=== PATIENT | female | born 1985 | race Caucasian/White ===

== ENCOUNTER → 2024-09-17 09:18 | Outpatient (REF) | payer OTHER, SELFPAY | LOC: PNTC 09:18 | PROVIDERS: ATTENDING PHYSICIAN Nurse Practitioner Family | DX: O36.80X0 Pregnancy with inconclusive fetal viability, not applicable or unspecified (principal) | CPT/HCPCS: 76801 ==

== ENCOUNTER → 2024-10-08 16:35 | Outpatient (REF) | payer OTHER, SELFPAY | LOC: PNTC 16:35 | PROVIDERS: ATTENDING PHYSICIAN Obstetrics & Gynecology | DX: O09.529 Supervision of elderly multigravida, unspecified trimester (principal) | CPT/HCPCS: 76801; 76813 ==

== ENCOUNTER → 2024-11-26 15:51 | Outpatient (REF) | payer OTHER, SELFPAY | LOC: PNTC 15:51 | PROVIDERS: ATTENDING PHYSICIAN Obstetrics & Gynecology | DX: O09.529 Supervision of elderly multigravida, unspecified trimester (principal) | CPT/HCPCS: 76811; 76817 ==

== ENCOUNTER → 2025-01-15 16:12 | Outpatient (REF) | payer OTHER, SELFPAY | LOC: PNTC 16:12 | PROVIDERS: ATTENDING PHYSICIAN Obstetrics & Gynecology | DX: O09.522 Supervision of elderly multigravida, second trimester (principal); O46.92 Antepartum hemorrhage, unspecified, second trimester | CPT/HCPCS: 76816 ==

== ENCOUNTER → 2025-02-21 16:08 | Outpatient (REF) | payer OTHER, SELFPAY | LOC: PNTC 16:08 | PROVIDERS: ATTENDING PHYSICIAN Obstetrics & Gynecology | DX: O09.523 Supervision of elderly multigravida, third trimester (principal); O46.93 Antepartum hemorrhage, unspecified, third trimester | CPT/HCPCS: 76816 ==

== ENCOUNTER 2025-03-21 16:56 | Observation (INO) | payer OTHER, SELFPAY ==
[2025-03-21 17:05] VITALS: BP 107/76; BMI 25.8
== END 2025-03-21 19:25 | disposition home or self-care (01) ==
LOC: LDRP 16:56
PROVIDERS: ADMITTING PHYSICIAN Obstetrics & Gynecology
DX: O47.1 False labor at or after 37 completed weeks of gestation (principal); Z3A.37 37 weeks gestation of pregnancy; Z91.030 Bee allergy status
CPT/HCPCS: 86850; 86900; 86901; G0378

== ENCOUNTER 2025-04-04 08:09 | Inpatient (IN) | payer OTHER, SELFPAY ==
[2025-04-04 08:17] VITALS: BP 108/75; BMI 27.1
[2025-04-04] MEDS: VANCOCIN 530 MG IV ×2 (11:04→19:05)
[2025-04-04 15:48] LABS: Hematocrit 37.1 % (37.0-47.0); Hemoglobin 12.4 g/dL (12.0-16.0); Mean Corp Hgb Conc. 33.4 g/dL (33.0-37.0); Mean Corpuscular Volume 88.1 fL (81.0-99.0); Nucleated Red Blood Cells % 0 %; Platelet Count 197 10^3/uL (130-400); Red Cell Dist. Width 13.0 % (11.5-14.5)
[2025-04-04] MEDS: LR 1000 IV ×2 (19:05→21:15)
[2025-04-04] MEDS: TYLENOL 1000 MG PO (20:14)
[2025-04-04] MEDS: SUBLIMAZE 100 MCG EPIDURAL (20:53)
[2025-04-04] MEDS: FENTANYL/BUPIVACAINE 100 EPIDURAL (20:54)
[2025-04-04] MEDS: TUMS CHEWABLE TABLET 400 MG PO (23:40)
[2025-04-05] MEDS: PITOCIN 30 UNITS/NSS 500 ML IV (01:26)
[2025-04-05] MEDS: TYLENOL 650 MG PO ×3 (03:07→20:25)
[2025-04-05] MEDS: MOTRIN 600 MG PO ×3 (03:07→20:26)
[2025-04-05] MEDS: VITAMIN C 500 MG PO (10:50)
[2025-04-05] MEDS: COLACE 100 MG PO ×2 (10:50→20:25)
[2025-04-05] MEDS: OSCAL 500 + D 500 MG PO (10:50)
[2025-04-05] MEDS: PRENATAL PLUS 1 TABLET PO (10:50)
[2025-04-06] MEDS: TYLENOL 650 MG PO ×3 (02:43→14:04)
[2025-04-06] MEDS: MOTRIN 600 MG PO ×4 (02:43→21:17)
[2025-04-06 03:03] LABS: Hematocrit 30.4 % (37.0-47.0); Hemoglobin 10.6 g/dL (12.0-16.0)
[2025-04-06] MEDS: OSCAL 500 + D 500 MG PO (08:37)
[2025-04-06] MEDS: COLACE 100 MG PO ×2 (08:37→21:18)
[2025-04-06] MEDS: PRENATAL PLUS 1 TABLET PO (08:37)
[2025-04-06] MEDS: FEOSOL 325 MG PO (08:37)
[2025-04-06] MEDS: VITAMIN C 500 MG PO (08:40)
[2025-04-06] MEDS: DILAUDID 2 MG PO ×2 (17:05→21:17)
[2025-04-07] MEDS: MOTRIN 600 MG PO ×2 (04:43→12:36)
[2025-04-07] MEDS: TYLENOL 650 MG PO ×2 (04:43→12:37)
[2025-04-07] MEDS: COLACE 100 MG PO (08:11)
[2025-04-07] MEDS: PRENATAL PLUS 1 TABLET PO (08:11)
[2025-04-07] MEDS: OSCAL 500 + D 500 MG PO (08:11)
[2025-04-07] MEDS: VITAMIN C 500 MG PO (08:11)
[2025-04-09 12:28] LABS: Syphilis/T. pallidum Ab Reflex Negative (Negative)
== END 2025-04-07 13:42 | disposition home or self-care (01) | DRG 807 ==
LOC: LDRP 08:09
PROVIDERS: ADMITTING PHYSICIAN Student in an Organized Health Care Education/Training Program; FAMILY PHYSICIAN Obstetrics & Gynecology
PROC: 10907ZC Drainage of Amniotic Fluid, Therapeutic from Products of Conception, Via Natural or Artificial Opening (ICD-10-PCS; 2025-04-04)
PROC: 10E0XZZ Delivery of Products of Conception, External Approach (ICD-10-PCS; 2025-04-05)
PROC: 0KQM0ZZ Repair Perineum Muscle, Open Approach (ICD-10-PCS; 2025-04-05)
DX: O99.824 Streptococcus B carrier state complicating childbirth (principal); Z37.0 Single live birth; Z3A.39 39 weeks gestation of pregnancy; O70.1 Second degree perineal laceration during delivery; Z88.0 Allergy status to penicillin; Z91.030 Bee allergy status
CPT/HCPCS: 85014; 85018; 85025; 86780; 86850; 86900; 86901